=== PATIENT | male | born 1990 | race Caucasian/White ===

== ENCOUNTER → 2020-07-13 09:50 | Outpatient (CLI) | payer BC, SELFPAY ==
--- NOTE | 2020-07-13 09:56 | US_ITS ---
PROCEDURE: US TESTICULAR CLINICAL INDICATION: LT TESTICULAR PAIN COMPARISON: No exams were available for comparison FINDINGS: Right testicle is 3 x 3 x 2 cm. Left testicle is 3 x 3.5 x 2.6 cm. There is homogeneous echogenicity. No mass or abnormal fluid collection is evident. No hydrocele. No varicocele or spermatocele. There is bilateral testicular blood flow IMPRESSION: Negative testicular ultrasound Dictated by: Lamin Shah MD 07/13/2020 11:28 Lamin Shah MD in [place] 07/13/2020 11:28
== END ==
PROVIDERS: PCP Family Medicine; Visit Provider Physician Assistant
DX: N50.812 Left testicular pain (principal)
CPT/HCPCS: 76870

== ENCOUNTER → 2021-08-30 16:20 | Outpatient (CLI) | payer BC, SELFPAY | PROVIDERS: PCP Family Medicine; Visit Provider Nurse Practitioner | DX: Z20.822 Contact with and (suspected) exposure to COVID-19 (principal) ==

== ENCOUNTER → 2021-11-19 18:03 | Outpatient (CLI) | payer BC, SELFPAY | PROVIDERS: PCP Family Medicine; Visit Provider Nurse Practitioner | DX: Z20.822 Contact with and (suspected) exposure to COVID-19 (principal) | CPT/HCPCS: C9803; U0003; U0005 ==

== ENCOUNTER → 2021-12-09 10:33 | Outpatient (CLI) | payer BC, SELFPAY | PROVIDERS: PCP Psychiatry & Neurology Sleep Medicine; Visit Provider Nurse Practitioner | DX: U07.1 COVID-19 (principal) | CPT/HCPCS: C9803; U0003; U0005 ==

== ENCOUNTER → 2021-12-16 11:21 | Outpatient (CLI) | payer BC, SELFPAY | PROVIDERS: Visit Provider Nurse Practitioner | DX: U07.1 COVID-19 (principal) | CPT/HCPCS: C9803; U0003; U0005 ==

== ENCOUNTER → 2022-07-23 10:06 | Outpatient (CLI) | payer BC, SELFPAY ==
--- NOTE | 2022-07-23 10:12 | XR_ITS ---
FINAL REPORT TECHNIQUE: Chest PA & Lateral CLINICAL HISTORY: COUGH FINDINGS: 2 views of the chest were performed. The heart size is normal. There is a calcified right hilar lymph node. There is a calcified granuloma in the right mid lung. The left lung is clear. There are no pleural effusions. There is no pneumothorax. The bony thorax appears intact. IMPRESSION: No acute cardiopulmonary process. Calcified residual of old granulomatous disease. Reviewed, Interpreted and Dictated by Ray Lovelace MD Transcribed by Isi Maldonado Authenticated and [facility][1]
--- NOTE | 2022-07-23 10:12 | XR_ITS ---
FINAL REPORT CLINICAL HISTORY: RT FOOT PAIN FINDINGS: RIGHT FOOT Three views of the right foot demonstrate no acute fracture or dislocation. There is an old healed fracture at the base of the 5th metatarsal. The visualized joint spaces are normally aligned. The soft tissues are unremarkable. IMPRESSION: No acute bony abnormality. Reviewed, Interpreted and Dictated by Ray Lovelace MD Transcribed by Isi Maldonado Authenticated and [facility]
== END ==
PROVIDERS: PCP Physician Assistant; Visit Provider Physician Assistant
DX: M79.671 Pain in right foot; R05.8 Other specified cough
CPT/HCPCS: 71046; 73630

== ENCOUNTER → 2022-07-30 11:22 | Outpatient (CLI) | payer BC, SELFPAY ==
--- NOTE | 2022-07-30 11:33 | ECG_ITS ---
APPROVED REPORT Exam: Resting ECG HR:69 bpm ECG Measurements Heart Rate 69 AXES SD 153 P 55 QRSd 86 QRS 27 QT 380 T 31 QTc 399 Conclusion SINUS RHYTHM WITH SINUS ARRHYTHMIA NONSPECIFIC ST ELEVATION [0.05+ mV ST ELEVATION] BORDERLINE ECG UNCONFIRMED REPORT Electronically signed by : Todd Gaffney MD 07/31/2022 11:25:09
== END ==
LOC: RT 11:23
PROVIDERS: PCP Family Medicine; Visit Provider Nurse Practitioner Family
DX: R55 Syncope and collapse (principal)
CPT/HCPCS: 93005

== ENCOUNTER 2022-08-15 18:28 | Emergency (ER) | payer BC, SELFPAY ==
--- NOTE | 2022-08-15 18:31 | XR_ITS ---
PROCEDURE INFORMATION: Exam: XR Left Ribs with PA Chest Exam date and time: 08/15/2022 6:33 PM Age: 32 years old Clinical indication: Chest wall pain; Left; Additional info: Pain after coughing spell TECHNIQUE: Imaging protocol: Radiologic exam of the Left ribs with PA chest. Views: 3 views COMPARISON: CR XR CHEST 2V 07/23/2022 10:15 AM FINDINGS: Lungs: A chronic right pulmonary nodule of 8 mm, calcified granuloma previously reported no acute pulmonary findings. No consolidation. No significant pulmonary vascular congestion. Normal lung volumes. Chronic calcified right hilar lymph nodes. Pleural spaces: Unremarkable. No significant pleural effusion. No pneumothorax. Heart/Mediastinum: The cardiac silhouette is normal. Bones/joints: No acute or displaced rib fracture detected. IMPRESSION: 1. No acute rib fracture detected. 2. No acute cardiopulmonary findings. No consolidation, pleural effusion or pneumothorax. 3. Chronic calcified right pulmonary granuloma, and calcified right hilar lymph nodes.
[2022-08-15 19:09] VITALS: BP 139/87; PULSE 80; RESP 19; TEMP 36.9; O2SAT 98; BMI 34.9
--- NOTE | 2022-08-15 19:22 | EXP.UTC ---
Discharge Plan Disposition Patient Disposition: Home, Self-Care Condition: Good Prescriptions Prescriptions: No Action amoxicillin 500 mg capsule 500 mg PO Q12H 10 Days Qty: 20 0RF Referrals Follow up/Referrals: Ana Lilia Hinkle APRN [Primary Care Provider] - See instructions Activity Restrictions/Add. Instructions Additional Instructions/Restrictions: Cool compresses may help with pain Over the counter lidocaine patches may help with pain and discomfort follow directions on package *Ibuprofen 600-800mg every 6-8 hours as needed for pain an inflammation. If need something more can take Tylenol in between doses of Ibuprofen to help Immediately follow up with your family doctor for new or worsening of symptoms, or no noticeable improvement over the next 3-5 days Clinical Impressions Clinical Impression: Pain in rib Stand Alone Forms Stand Alone Forms: Work/School Release Instructions Patient Instructions: DI for Chronic Pain -- Adult, DI for Rib Contusion Discharge ED Provider: Rafaela Miramontes [facility] [place] General Stated complaint: left rib pain, no accident Mode of Arrival: Ambulatory Source of Information: Patient Limitations: No Limitations Time Seen by Provider: 08/15/22 19:22 Description of Symptoms (Recalled from Triage Doc. by RN): C/O rib pain after coughing HEENT Symptoms (Recalled from RN notes): No Resp Symptoms (Recalled from RN notes): No Skin Symptoms (Recalled from RN notes): No MS Symptoms (Recalled from RN notes): Yes (Rib pain) Functional Status (Recalled from RN notes): n/a History of Present Illness Provider Complaint: Patient states that at work earlier today he had a coughing episode and thinks he may have broke a rib States that he has been having pain in his left lower ribs since coughing earlier and feeling pop States that he had to leave work and come in and get checked State that he has pain at times when he moves or takes a deep breath Related Data Previous Rx's Medication Instructions Recorded amoxicillin 500 mg capsule 500 mg PO Q12H otitis media 10 11/28/19 days #20 caps Allergies Allergy/AdvReac Type Severity Reaction Status Date / Time No Known Allergies Allergy Verified 11/28/19 15:32 Worker's Comp Is this a Worker's Comp case?: No PFSH PFSH Social History Smoking Status: Current every day smoker tobacco type: e-cigarettes alcohol intake: never current occupational status: employed Travel in the last 8 weeks: None household members: family housing: house ROS Obtained: Yes All systems reviewed & no additional complaints except as documented and Yes Systems reviewed as appropriate & no additional complaints except as documented Constitutional Constitutional: Reports system reviewed and no additional complaints, except as documented and Reports as per HPI ENT Ears, Nose, Mouth, and Throat: Reports system reviewed and no additional complaints, except as documented and Reports as per HPI Cardiovascular Cardiovascular: Reports system reviewed and no additional complaints, except as documented, Reports as per HPI and Denies chest pain Respiratory Respiratory: Reports system reviewed and no additional complaints, except as documented, Reports as per HPI and Reports pain with cough (pain in left ribs felt pop earlier with coughing in left lower rib) Physical Exam General General appearance: alert and in no apparent distress Chest Chest inspection: Present normal inspection, symmetric chest wall rise and tenderness Expanded Chest Exam Male Torso: 1. reports tenderness with touch and movement reports felt a pop while coughing earlier no bruising no swelling noted Respiratory Respiratory exam: Present normal lung sounds bilaterally; Absent respiratory distress or wheezes Cardiovascular Cardiovascular exam: Present regular rate, normal rhythm and normal heart sounds Neurological Exam Neurological exam: Present alert, oriented X3 and normal gait
[2022-08-15 19:37] VITALS: BP 139/87; PULSE 80; RESP 19; TEMP 36.9; O2SAT 98
== END 2022-08-15 19:38 | disposition home or self-care (01) ==
PROVIDERS: Emergency Provider Nurse Practitioner; PCP Nurse Practitioner Family
DX: R07.81 Pleurodynia (principal); F17.290 Nicotine dependence, other tobacco product, uncomplicated
CPT/HCPCS: 71101; 99212; G0463

== ENCOUNTER → 2022-08-27 08:56 | Outpatient (CLI) | payer BC, SELFPAY | PROVIDERS: PCP Family Medicine; Visit Provider Urology | DX: Z01.812 Encounter for preprocedural laboratory examination (principal); Z20.822 Contact with and (suspected) exposure to COVID-19; Z30.2 Encounter for sterilization | CPT/HCPCS: C9803; U0003; U0005 ==

== ENCOUNTER 2022-08-29 06:46 | Day surgery (SDC) | payer BC, SELFPAY ==
[2022-08-29 07:20] VITALS: BP 146/91; PULSE 90; RESP 20; TEMP 36.6; O2SAT 94; BMI 37.2
[2022-08-29 09:12] VITALS: BP 139/73; PULSE 78; RESP 16; TEMP 36.3; O2SAT 100
--- NOTE | 2022-08-29 09:20 | EXP.OP.NOTE ---
Date of procedure: 08/29/22 Pre-op Diagnosis:: Sterilization Post-op Diagnosis:: Sterilization Procedure performed:: Vasectomy Surgeon:: Ward Green MD Anesthesia: local Estimated blood loss (mL): 2 Clinical Note:: 32-year-old white male presents for vasectomy today. Preoperative consultation has been performed in the office within the month. Operative findings:: Scrotal examination revealed normal testicular examination. Procedure went well no complications incurred. Operative note:: Patient taken to the operating suite after informed consent was obtained. On the stretcher he was prepped and draped in the standard surgical fashion. Testicular examination was within normal limits. Left vas was grasped and brought up to the midline raphae. Local anesthetic was placed under the skin and around the vas deferens. An incision was then made in the skin and a tenaculum was placed through the incision and the left vas was grasped and brought out through the incision. The vasal sheath was incised and the vas proper was dissected free from the adventitial tissue. 1 clip was placed distally and 2 clips were placed proximally. A 1 cm segment was excised and the vasa lumens were cauterized and the surrounding tissue was cauterized at bleeding points. The left vas was dropped back into the left hemiscrotum and the right vas was brought up through the incision and the identical procedure was performed. The right vas was dropped back into the hemiscrotum and a 3-0 chromic in a horizontal mattress fashion was placed in the incision. Compression dressing applied. Patient tolerated procedure well no complications. Condition: stable Disposition: same day Specimens:: Vas segments were obtained but not sent for pathology. Complications:: None
[2022-08-29 09:28] VITALS: BP 139/73; PULSE 78; RESP 16; TEMP 36.3; O2SAT 100
== END 2022-08-29 09:28 | disposition home or self-care (01) ==
PROVIDERS: PCP Family Medicine; Visit Provider Urology
PROC: (CPT 55250; principal; 2022-08-29 08:00)
DX: Z30.2 Encounter for sterilization (principal); F17.200 Nicotine dependence, unspecified, uncomplicated
CPT/HCPCS: 55250

== ENCOUNTER → 2022-11-07 08:28 | Outpatient (CLI) | payer BC, SELFPAY | PROVIDERS: PCP Family Medicine; Visit Provider Urology | DX: Z30.8 Encounter for other contraceptive management (principal); Z31.41 Encounter for fertility testing ==

== ENCOUNTER → 2022-11-13 09:15 | Outpatient (CLI) | payer BC, SELFPAY ==
[2022-11-13 10:16] LABS: PH,Semen 8.5 (7.3-8.3); Semen Viscosity Normal (Normal); Sperm Count 0 mil/mm3 (20-160); Sperm Motility 0 % (50-90); Volume,Semen 1.5 ml (2.0-5.0); WBCs,Semen Trace
[2022-11-13 10:17] LABS: Semen Analysis Comment/Source NO SPERM OBSERVED
== END ==
PROVIDERS: PCP Family Medicine; Visit Provider Urology
DX: Z98.52 Vasectomy status (principal)
CPT/HCPCS: 89320

== ENCOUNTER → 2022-12-22 09:34 | Outpatient (CLI) | payer BC, SELFPAY ==
[2022-12-22 10:29] LABS: Semen Viscosity Normal (Normal); Volume,Semen 1.5 ml (2.0-5.0); WBCs,Semen Small
[2022-12-22 10:30] LABS: PH,Semen 8.5 (7.3-8.3); Semen Analysis Comment/Source NO SPERM SEEN
[2022-12-22 10:31] LABS: Sperm Count 0 mil/mm3 (20-160)
== END ==
PROVIDERS: PCP Family Medicine; Visit Provider Urology
DX: Z98.52 Vasectomy status (principal)
CPT/HCPCS: 89320

== ENCOUNTER 2023-08-24 09:03 | Emergency (ER) | payer BC, SELFPAY ==
--- NOTE | 2023-08-24 09:19 | XR_ITS ---
FINAL REPORT CLINICAL HISTORY: PAIN, NO INJURY COMPARISON: None FINDINGS: AP, oblique, and lateral views of the right wrist were obtained. There is no prior exam for comparison. There is no acute fracture or dislocation. The joint spaces are preserved. The soft tissues are normal. IMPRESSION: No acute osseous abnormality of the right wrist. If pain persists, MR is recommended. Reviewed, Interpreted and Dictated by Leann Martinez MD Transcribed by Dorie Boston Authenticated and [facility]
[2023-08-24 09:25] VITALS: BP 143/90; PULSE 74; RESP 18; TEMP 36.6; O2SAT 98; BMI 37.8
--- NOTE | 2023-08-24 09:42 | EXP.UTC ---
Discharge Plan Disposition Patient Disposition: Home, Self-Care Condition: Good Prescriptions Prescriptions: New methylprednisolone [Medrol (Sagar)] 4 mg tablets,dose pack See Rx Instructions .Route .COMPLEX 6 Days Qty: 21 0RF Rx Instructions: taper pack; Referrals Follow up/Referrals: Levar Roland MD [Primary Care Provider] - See instructions Activity Restrictions/Add. Instructions Additional Instructions/Restrictions: *RICE, Rest the extremity, Ice 15-20 minutes 3-4 times daily, Compress- wear the charmaine wrap as discussed as much as possible to help reduce swelling and pain, Elevate the extremity when at rest *Velcro Wrist splint is for support and help control swelling, use it except in the shower. Be sure that is not to tight but not to loose either *Elevate when resting? *Ibuprofen 600-800mg every 6-8 hours as needed for pain an inflammation. If need something more can take Tylenol in between doses of Ibuprofen to help Immediately follow up with your family doctor for new or worsening of symptoms, or no noticeable improvement over the next 3-5 days Follow up with your Family Doctor if no improvement or any worsening of symptoms Clinical Impressions Clinical Impression: Acute wrist pain Qualifiers: Laterality: right Qualified Code(s): M25.531 - Pain in right wrist Instructions Patient Instructions: How To Perform RICE (Rest, Ice, Compress, Elevate) Discharge ED Provider: Rafaela Miramontes [facility] General Stated complaint: pain in Rt wrist, no accident Mode of Arrival: Ambulatory Source of Information: Patient Limitations: No Limitations Time Seen by Provider: 08/24/23 09:42 Description of Symptoms (Recalled from Triage Doc. by RN): PATIENT C/O RIGHT WRIST PAIN X 1 WEEK, NO KNOWN INJURY HEENT Symptoms (Recalled from RN notes): No Resp Symptoms (Recalled from RN notes): No Skin Symptoms (Recalled from RN notes): No MS Symptoms (Recalled from RN notes): Yes Functional Status (Recalled from RN notes): WNL History of Present Illness Provider Complaint: Patient state that he has been doing some remodeling at home not sure if he may have pulled something in his wrist or not but he has been having pain in his right wrist for about a week that is worse with movement Denies known injury no swelling or bruising Related Data Previous Rx's Medication Instructions Recorded methylprednisolone 4 mg tablets in See Rx Instructions .Route 08/24/23 a dose pack (Medrol (Sagar)) .COMPLEX 6 days #21 tabs Allergies Allergy/AdvReac Type Severity Reaction Status Date / Time No Known Allergies Allergy Verified 08/29/22 07:21 Worker's Comp Is this a Worker's Comp case?: No [facility] Disclaimer: The information contained in this section may have been updated after the patient was seen, as this information can be updated by other users. Surgical History (Updated 08/24/23 @ 09:38 by Carole Garnica RN) H/O vasectomy Family History (Updated 08/29/22 @ 07:25 by Bryanna Bowles RN) Other Cancer Family history of diabetes mellitus type II Social History (Updated 08/29/22 @ 07:28 by Bryanna Bowles RN) Smoking Status: Current every day smoker tobacco type: e-cigarettes years smoked: 10 second hand exposure: No alcohol intake: never current occupational status: employed Travel in the last 8 weeks: None household members: family housing: house marital status: caffeine: Yes do you feel safe at home: Yes victim of physical abuse: No victim of emotional abuse: No victim of sexual abuse: No would you like helpful sources: No ROS Obtained: Yes All systems reviewed & no additional complaints except as documented and Yes Systems reviewed as appropriate & no additional complaints except as documented Constitutional Constitutional: Reports system reviewed and no additional complaints, except as documented and Reports as per HPI ENT Ears, Nose, Mouth
[2023-08-24 10:10] VITALS: BP 143/90; PULSE 74; RESP 18; TEMP 36.6; O2SAT 98
== END 2023-08-24 10:46 | disposition home or self-care (01) ==
PROVIDERS: Emergency Provider Nurse Practitioner; PCP Family Medicine
DX: M25.531 Pain in right wrist (principal); F17.290 Nicotine dependence, other tobacco product, uncomplicated
CPT/HCPCS: 73110; 99212; 99214; G0463

== ENCOUNTER 2024-04-29 18:19 | Emergency (ER) | payer BC, SELFPAY ==
[2024-04-29 18:47] VITALS: BP 124/87; PULSE 82; RESP 18; TEMP 36.7; O2SAT 98; BMI 35.9
--- NOTE | 2024-04-29 18:58 | ED_ITS ---
Discharge Plan Disposition Patient Disposition: Home, Self-Care Condition: Good Prescriptions Prescriptions: New triamcinolone acetonide 0.1 % cream 1 applic topical BID PRN (Reason: itching) Qty: 30 0RF diphenhydramine HCl 25 mg capsule 25 mg PO Q6HP PRN (Reason: Itching) Qty: 30 0RF No Action methylprednisolone [Medrol (Sagar)] 4 mg tablets,dose pack See Rx Instructions .Route .COMPLEX 6 Days Qty: 21 0RF Rx Instructions: taper pack; Referrals Follow up/Referrals: Levar Roland MD [Primary Care Provider] - See instructions Activity Restrictions/Add. Instructions Additional Instructions/Restrictions: Try to identify and avoid contact with the offending substance. Don't start the oral steroids until tomorrow. The diphenhydramine (benedryl) will make you drowsy, so don't drive or operate heavy machinery after taking it. Don't put the topical steroids (triamcinolone) on your face or your groin. Follow up with your regular doctor. GO TO THE ER FOR ANY WORSENING SYMPTOMS OR CONCERNS Clinical Impressions Clinical Impression: Allergic reaction Instructions Patient Instructions: DI for General Allergic Reactions, Triamcinolone Topical, Diphenhydramine, Dexamethasone Discharge ED Provider: Pedro Craig [facility] [place] General Stated complaint: Allergic reaction-red rash on arms,neck face Mode of Arrival: Ambulatory Source of Information: Patient Limitations: No Limitations Time Seen by Provider: 04/29/24 18:58 Description of Symptoms (Recalled from Triage Doc. by RN): Patient complaint of a possible allergic reaction. Rash to arms and face. HEENT Symptoms (Recalled from RN notes): No Resp Symptoms (Recalled from RN notes): No Skin Symptoms (Recalled from RN notes): Yes MS Symptoms (Recalled from RN notes): No Functional Status (Recalled from RN notes): wnl History of Present Illness Provider Complaint: He states that for the past 2 days he has had an itchy rash on his face, arms, upper back and neck. Related Data Previous Rx's Medication Instructions Recorded methylprednisolone 4 mg tablets in See Rx Instructions .Route 08/24/23 a dose pack (Medrol (Sagar)) .COMPLEX 6 days #21 tabs diphenhydramine HCl 25 mg capsule 25 mg PO Q6HP PRN Itching #30 caps 04/29/24 triamcinolone acetonide 0.1 % 1 applic topical BID PRN itching 04/29/24 topical cream #30 grams Allergies Allergy/AdvReac Type Severity Reaction Status Date / Time No Known Allergies Allergy Verified 08/29/22 07:21 Worker's Comp Is this a Worker's Comp case?: No [facility] Disclaimer: The information contained in this section may have been updated after the patient was seen, as this information can be updated by other users. Surgical History (Updated 08/24/23 @ 09:38 by Carole Garnica RN) H/O vasectomy Family History (Updated 08/29/22 @ 07:25 by Bryanna Bowles RN) Other Cancer Family history of diabetes mellitus type II Social History (Updated 08/29/22 @ 07:28 by Bryanna Bowles RN) Smoking Status: Current every day smoker tobacco type: e-cigarettes years smoked: 10 second hand exposure: No alcohol intake: never current occupational status: employed Travel in the last 8 weeks: None household members: family housing: house marital status: caffeine: Yes do you feel safe at home: Yes victim of physical abuse: No victim of emotional abuse: No victim of sexual abuse: No would you like helpful sources: No ROS Obtained: Yes All systems reviewed & no additional complaints except as documented Constitutional Constitutional: Denies chills and Denies fever(s) Eyes Eyes: Denies eye discharge ENT Ears, Nose, Mouth, and Throat: Denies dizziness, Denies otalgia and Denies sore throat Cardiovascular Cardiovascular: Denies chest pain Respiratory Respiratory: Denies shortness of breath, Denies chest congestion, Denies cough, Denies stridor and Denies wheezing Gastrointestinal Gastrointestingal: Denies nausea or vomiting Musculoskeletal Musculoskeletal: Reports system reviewed and no additional complaints, except as documented and Denies arthralgias Integumentary/Breasts Skin/Breast: Reports as per HPI and Reports rash Neurologic Neurologic: Denies dizziness and Denies paresthesias Allergic/Immunologic Allergic/Immunologic: Denies wheezing Physical Exam General General appearance: alert and in no apparent distress Head Head exam: atraumatic, normocephalic and normal inspection Eye Eye exam: Present normal appearance, PERRL and EOMI ENT ENT exam: Present normal exam, normal oropharynx, mucous membranes moist, TM's normal bilaterally and normal external ear exam Neck Neck exam: Present normal inspection, full ROM and trachea midline; Absent meningismus or lymphadenopathy Chest Chest inspection: Present normal inspection and symmetric chest wall rise; Absent tenderness Respiratory Respiratory exam: Present normal lung sounds bilaterally; Absent respiratory distress Cardiovascular Cardiovascular exam: Present regular rate and normal rhythm; Absent JVD Abdominal Exam Abdominal exam: Present soft and normal bowel sounds; Absent distention, tenderness or guarding Extremities Exam Extremities exam: Present normal inspection, full ROM and normal capillary refill; Absent calf tenderness Back Exam Back exam: Present normal inspection; Absent tenderness Neurological Exam Neurological exam: Present alert and oriented X3 Psychiatric Psychiatric exam: Present normal affect and normal mood Skin Skin exam: Present rash Lymphatic Lymphatic Findings: no adenopathy Medical Decision Making Medical Records Medical records reviewed: No I reviewed the patient's medical records. Cal Inquiry Pt receiving controlled substance: No Vital Signs: 04/29/24 18:47 Temperature 98.0 F Temperature Source Oral Pulse Rate [Radial] 82 Respiratory Rate 18 Blood Pressure [Right Arm] 124/87 Blood Pressure Mean [Right Arm] 99 Blood Pressure Source [Right Arm] Automatic Cuff Blood Pressure Position [Right Arm] Sitting 02 Sat by Pulse Oximetry 98 Oxygen Delivery Method Room Air
[2024-04-29] MEDS: DEXAMETHASONE 4MG/ML 1ML VIAL 10 MG IM (19:18)
[2024-04-29 19:29] VITALS: BP 124/87; PULSE 82; RESP 18; TEMP 36.7; O2SAT 98
== END 2024-04-29 19:30 | disposition home or self-care (01) ==
PROVIDERS: Emergency Provider Nurse Practitioner Family; PCP Family Medicine
DX: T78.40XA Allergy, unspecified, initial encounter (principal); R21 Rash and other nonspecific skin eruption
CPT/HCPCS: 96372; 99212; 99214; G0463

== ENCOUNTER 2024-07-17 07:51 | Emergency (ER) | payer BC, SELFPAY ==
[2024-07-17] VITALS (8 sets, daily range): BP systolic 115–155; BP diastolic 56–88; PULSE 59–91; RESP 16; TEMP 36.6; O2SAT 94–97; BMI 36.2
[2024-07-17 08:07] LABS: Microscopic, Urine URINE MICROSCOPIC (MICROSCOPIC)
[2024-07-17 08:09] LABS: Appearance,Urine CLEAR (Clear); Bilirubin,Urine Negative (Negative); Blood, Urine 3+ (Negative); Color,Urine YELLOW (Yellow); Glucose,Urine (UA) Negative (Negative); Ketones,Urine Negative (Negative); Leukocyte Esterase,Urine Negative (Negative); Nitrate,Urine Negative (Negative); Protein,Urine Negative (Negative); Specific Gravity, Urine >= 1.030 (1.005-1.030); Urobilinogen,Urine 0.2 EU/dl (0.2)
--- NOTE | 2024-07-17 08:11 | CT_ITS ---
PROCEDURE INFORMATION: Exam: CT Lumbar Spine Without Contrast Exam date and time: 07/17/2024 8:29 AM Age: 34 years old Clinical indication: Low back pain; Additional info: L low back/flank pain TECHNIQUE: Imaging protocol: Computed tomography of the lumbar spine without contrast. Radiation optimization: All CT scans at this facility use at least one of these dose optimization techniques: automated exposure control; mA and/or kV adjustment per patient size (includes targeted exams where dose is matched to clinical indication); or iterative reconstruction. COMPARISON: CT THORACIC SPINE WO CON 07/17/2024 8:26 AM FINDINGS: Bones/joints: No acute fracture. Normal alignment. Disc spaces: There is loss of disc space height at L5-S1, related to degenerative disc disease. T12-L1: No significant disc bulge or herniation. No spinal canal stenosis. No significant neural foraminal narrowing. L1-L2: No significant disc bulge or herniation. No spinal canal stenosis. No significant neural foraminal narrowing. L2-L3: There is a small bulge which flattens the sac. No spinal canal stenosis. No significant neural foraminal narrowing. L3-L4: There is a small bulge which flattens the sac. No spinal canal stenosis. No significant neural foraminal narrowing. L4-L5: No significant disc bulge or herniation. There are mild facet joint degenerative changes. No spinal canal stenosis. No significant neural foraminal narrowing. L5-S1: There is a diffuse protrusion more prominent on the left than right which extends to the sac and S1 roots (series 3, image 80). No spinal canal stenosis. No significant neural foraminal narrowing. Soft tissues: Left distal ureteral calculus. IMPRESSION: 1. There are degenerative changes most focal at L5-S1 where there is a diffuse protrusion which extends of the sac and S1 roots. 2. If radicular symptoms are present and/or persists a follow-up MRI may be indicated. 3. Left distal ureteral calculus.
--- NOTE | 2024-07-17 08:11 | CT_ITS ---
PROCEDURE INFORMATION: Exam: CT Abdomen And Pelvis Without Contrast Exam date and time: 07/17/2024 8:19 AM Age: 34 years old Clinical indication: Abdominal pain and other: Lower back; Flank; Left; Additional info: L low back/flank pain TECHNIQUE: Imaging protocol: Computed tomography of the abdomen and pelvis without contrast. Radiation optimization: All CT scans at this facility use at least one of these dose optimization techniques: automated exposure control; mA and/or kV adjustment per patient size (includes targeted exams where dose is matched to clinical indication); or iterative reconstruction. COMPARISON: US TESTICULAR 07/13/2020 10:09 AM FINDINGS: Liver: There is a punctate posterior hepatic calcification. There is fatty infiltration of the liver with some sparing surrounding the gallbladder. Gallbladder and biliary ducts: No calcified stones. No ductal dilation. Pancreas: Normal. No ductal dilation. Spleen: There are multiple splenic calcifications. Adrenal glands: Normal. No mass. Kidneys and ureters: There is mild to moderate left hydronephrosis and hydroureter. There is a 6 mm distal left ureteral calculus at or just inferior to the pelvic vessels (series 3, image 91). This is not identified on the gantry rigger radiograph. There is no renal calculus. Stomach and bowel: No obstruction. Appendix: No evidence of appendicitis. Intraperitoneal space: No free air. No significant fluid collection. Vasculature: No abdominal aortic aneurysm. Lymph nodes: No enlarged lymph nodes. Urinary bladder: Unremarkable as visualized. Reproductive: Unremarkable as visualized. Bones/joints: There are some degenerative changes of the lumbar spine better assessed on dedicated imaging. Soft tissues: There is a small fat containing periumbilical hernia. IMPRESSION: There is moderate obstruction of the left kidney from a 6 mm left ureteral calculus at or just inferior to the pelvic vessels.
--- NOTE | 2024-07-17 08:12 | HMH.EDGENADL ---
Discharge Plan Disposition Patient Disposition: Home, Self-Care Condition: Good Prescriptions Prescriptions: New oxycodone 5 mg tablet 5 mg PO Q8H PRN (Reason: pain) Qty: 12 0RF ketorolac 10 mg tablet 10 mg PO Q8H PRN (Reason: pain) Qty: 12 0RF ondansetron 4 mg tablet,disintegrating 4 mg PO Q8H PRN (Reason: nausea and vomiting) 4 Days Qty: 12 0RF tamsulosin [Flomax] 0.4 mg capsule 0.4 mg PO HS Qty: 14 0RF No Action methylprednisolone [Medrol (Sagar)] 4 mg tablets,dose pack See Rx Instructions .Route .COMPLEX 6 Days Qty: 21 0RF Rx Instructions: taper pack; triamcinolone acetonide 0.1 % cream 1 applic topical BID PRN (Reason: itching) Qty: 30 0RF diphenhydramine HCl 25 mg capsule 25 mg PO Q6HP PRN (Reason: Itching) Qty: 30 0RF Referrals Follow up/Referrals: Levar Roland MD [Primary Care Provider] - See instructions Activity Restrictions/Add. Instructions Additional Instructions/Restrictions: You were evaluated in the emergency department today. You were diagnosed with a kidney stone. You were also incidentally found to have disc abnormalities between T6 and T7 of your spine as well as L5 and S1. He also incidentally found to have a right lung granuloma with some adjacent lymph nodes. Please follow-up closely with your primary care provider for evaluation of these. For your kidney stone, I recommend close follow-up with urology. We often send people to Dr. Green. Please see below information. I am also prescribing you Flomax to help increase urine flow, Zofran to take as needed for nausea and vomiting, oxycodone to take as needed for severe pain, and Toradol to take as well as needed for pain. Do not take ibuprofen or other NSAIDs with Toradol. You may take Tylenol in addition to all these medications every 4-6 hours as needed for pain. Return to the emergency department right away for new or worsening symptoms, such as significant worsening of pain, intractable nausea and vomiting, or fever greater than 100.[address] Ward Green - ? 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 by RN): pt presents to ED with c/o left lower back pain. pt reports he has been seeing a chiropractor for the past week and that had been helping. pt reports seeing the chiropractor yesterday, but this am pt awoke with worsening pain. no urinary symptoms. History of Present Illness HPI narrative: This patient is a 34-year-old male who reports a history of chronic back pain as well as prior kidney stone presenting to the emergency department for evaluation with concern for left-sided low back pain that radiates around his ribs. Patient states that he has a history of low back pain in the past for which he sees a chiropractor. He notes that he saw the chiropractor yesterday and everything seemed to be fine, but he woke up this morning in severe pain. He also notes nausea and vomiting secondary to the pain. No fevers, chills, chest pain, shortness of breath, cough, congestion, changes in bowel movements, changes in urine, or other concerns. He does note that it seems to get worse with movement but he is not able to find a position of comfort. No numbness, tingling, or saddle anesthesia. Related Data Previous Rx's ?Medication ?Instructions ?Recorded methylprednisolone 4 mg tablets in See Rx Instructions .Route 08/24/23 a dose pack (Medrol (Sagar)) .COMPLEX 6 days #21 tabs diphenhydramine HCl 25 mg capsule 25 mg PO Q6HP PRN Itching #30 caps 04/29/24 triamcinolone acetonide 0.1 % 1 applic topical BID PRN itching 04/29/24 topical cream #30 grams ketorolac 10 mg tablet 10 mg PO Q8H PRN pain #12 tabs 07/17/24 ondansetron 4 mg disintegrating 4 mg PO Q8H PRN nausea and 07/17/24 tablet vomiting 4 days #12 tabs oxycodone 5 mg tablet 5 mg PO Q8H PRN pain #12 tabs 07/17/24 tamsulosin 0.4 mg capsule (Flomax) 0.4 mg PO HS #14 caps 07/17/24 Allergies Allergy/AdvReac Type Severity Reaction Status Date / Time No Known Allergies Allergy Verified 07/17/24 08:03 [facility] Disclaimer: The information contained in this section may have been updated after the patient was seen, as this information can be updated by other users. Surgical History H/O vasectomy Family History Other Cancer Family history of diabetes mellitus type II Social History Smoking Status: Never smoker years smoked: 10 second hand exposure: No alcohol intake: never current occupational status: employed Travel in the last 8 weeks: None household members: family housing: house marital status: caffeine: Yes do you feel safe at home: Yes victim of physical abuse: No victim of emotional abuse: No victim of sexual abuse: No would you like helpful sources: No ROS Obtained: Yes All systems reviewed & no additional complaints except as documented Physical Exam General General appearance: alert Comment: Uncomfortable appearing Head Head exam: atraumatic and normocephalic Eye Eye exam: Present normal appearance, PERRL and EOMI ENT ENT exam: Present normal exam, normal oropharynx, mucous membranes moist and normal external ear exam Neck Neck exam: Present normal inspection, full ROM and trachea midline; Absent tenderness Chest Chest inspection: Present normal inspection and symmetric chest wall rise; Absent tenderness Respiratory Respiratory exam: Present normal lung sounds bilaterally; Absent respiratory distress, wheezes, stridor or accessory muscle use Cardiovascular Cardiovascular exam: Present regular rate and normal rhythm Abdominal Exam Abdominal exam: Present soft; Absent distention, tenderness or guarding Extremities Exam Extremities exam: Present normal inspection, full ROM and normal capillary refill; Absent tenderness or edema Back Exam Back exam: Present tenderness, muscle spasm, paraspinal tenderness and vertebral tenderness; Absent full ROM (Limited range of motion secondary to pain) Back 1 view image: 1. Tenderness with palpation Neurological Exam Neurological exam: Present alert, oriented X3, CN II-XII intact and normal gait; Absent motor sensory deficit Psychiatric Psychiatric exam: Present normal affect and normal mood Skin Skin exam: Present warm and dry Medical Decision Making Medical Records Medical records reviewed: Yes I reviewed the patient's medical records. Cal Inquiry Pt receiving controlled substance: No Vital Signs: 07/17/24 07:52 07/17/24 08:01 07/17/24 08:16 Temperature 97.9 F Temperature Source Oral Pulse Rate 91 H 82 Pulse Rate [Left Radial] 88 Respiratory Rate 16 Blood Pressure 154/88 H 155/80 H Blood Pressure [Right Arm] 154/88 H Blood Pressure Mean [Right Arm] 110 02 Sat by Pulse Oximetry 97 97 97 Oxygen Delivery Method Room Air 07/17/24 08:46 07/17/24 09:01 07/17/24 09:16 Temperature Temperature Source Pulse Rate 79 68 61 Pulse Rate [Left Radial] Respiratory Rate Blood Pressure 139/75 145/56 H 123/72 Blood Pressure [Right Arm] Blood Pressure Mean [Right Arm] 02 Sat by Pulse Oximetry 95 96 95 Oxygen Delivery Method 07/17/24 09:30 Temperature Temperature Source Pulse Rate 77 Pulse Rate [Left Radial] Respiratory Rate Blood Pressure 125/67 Blood Pressure [Right Arm] Blood Pressure Mean [Right Arm] 02 Sat by Pulse Oximetry 94 L Oxygen Delivery Method Lab Data Lab results reviewed: Yes I reviewed the patient's lab results. Lab Results 07/17/24 08:03: Urine Color Yellow, Urine Appearance Clear, Urine pH 6.0, Ur Specific [place] >= 1.030, Urine Protein Negative, Urine Glucose (UA) Negative, Urine Ketones Negative, Urine Blood 3+, Urine Nitrate Negative, Urine Bilirubin Negative, Urine Urobilinogen 0.2, Ur Leukocyte Esterase Negative, Urine RBC 10-20, Urine WBC Occasional, Ur Squamous Epith Cells Occasional, Urine Bacteria Trace 07/17/24 08:10: WBC 8.8, RBC 5.23, Hgb 16.0, Hct 47.5, MCV 90.7, MCH 30.6, MCHC 33.8, RDW 12.9, Plt Count 304, MPV 7.6, Neut % (Auto) 69.7, Lymph % (Auto) 20.6, Tama % (Auto) 6.6, Eos % (Auto) 2.2, Baso % (Auto) 0.8, Neut # (Auto) 6.1, Lymph # (Auto) 1.8, Tama # (Auto) 0.6, Eos # (Auto) 0.2, Baso # (Auto) 0.1, Sodium 136, Potassium 4.6, Chloride 108 H, Carbon Dioxide 21 L, Anion Gap 11.6, BUN 17, Creatinine 0.90, Estimated Creat Clear 202, Estimated GFR 98, Est GFR ( Amer) 118, Glucose 107 H, Calcium 9.1, Total Bilirubin 1.0, AST 42, ALT 41, Alkaline Phosphatase 52, Total Protein 7.7, Albumin 4.5, Globulin 3.2, Albumin/Globulin Ratio 1.4, Lipase 103 07/17/24 08:10 07/17/24 08:10 Orders (Tests/Meds): ED MEDICATIONS Generic Name Dose Route Start Last Admin Trade Name Freq PRN Reason Stop Dose Admin Sodium Chloride 10 ml 07/17/24 08:11 Sodium Chloride 0.9% 10ml Flush Syringe IV 08/16/24 08:10 NEEDED PRN Maintain IV Site Discontinued Medications Generic Name Dose Route Start Last Admin Trade Name Freq PRN Reason Stop Dose Admin Acetaminophen 1,000 mg 07/17/24 08:12 07/17/24 08:23 Acetaminophen 500mg Tab PO 07/17/24 08:13 Not Given ONCE ONE Acetaminophen 1,000 mg 07/17/24 08:14 07/17/24 08:17 Acetaminophen 1,000mg/100ml Vial IV 07/17/24 08:15 1,000 mg ONCE ONE Administration Lactated Ringer's 1,000 mls @ 999 mls/hr 07/17/24 08:12 07/17/24 08:17 Lactated Ringer's 1000 Ml Bag IV 07/17/24 09:12 999 mls/hr .Q1H1M ONE Administration Ketorolac Tromethamine 15 mg 07/17/24 08:12 07/17/24 08:17 Ketorolac 30mg/Ml Vial IV 07/17/24 08:13 15 mg ONCE ONE Administration Morphine Sulfate 4 mg 07/17/24 08:12 07/17/24 08:17 Morphine 4mg/Ml Syringe IV 07/17/24 08:13 4 mg ONCE ONE Administration Ondansetron HCl 4 mg 07/17/24 08:12 07/17/24 08:23 Ondansetron 4mg/2ml Vial IV 07/17/24 08:13 Not Given ONCE ONE Ondansetron HCl 4 mg 07/17/24 08:12 07/17/24 08:14 Ondansetron 4mg Odt SL 07/17/24 08:13 4 mg ONCE ONE Administration Ondansetron HCl 4 mg 07/17/24 08:14 07/17/24 08:17 Ondansetron 4mg/2ml Vial IV 07/17/24 08:15 4 mg ONCE ONE Administration Oxycodone HCl 5 mg 07/17/24 09:14 07/17/24 09:18 Oxycodone 5mg Immediate Release Tablet PO 07/17/24 09:15 5 mg ONCE ONE Administration Tamsulosin HCl 0.4 mg 07/17/24 09:14 07/17/24 09:17 Tamsulosin 0.4mg Capsule PO 07/17/24 09:15 0.4 mg ONCE ONE Administration ORDERS Category Date Time Status CT abdomen pelvis wo con Stat Cat Scan 07/17/24 08:[address] lumbar spine wo con Stat Cat Scan 07/17/24 08:[address] thoracic spine wo con Stat Cat Scan 07/17/24 08:19 Completed Complete Blood Count Auto Diff Stat Lab 07/17/24 08:10 Completed Comprehensive Metabolic Panel Stat Lab 07/17/24 08:10 Completed Lipase Stat Lab 07/17/24 08:10 Completed UA [Urinalysis and Microscopic] Stat Lab 07/17/24 08:03 Completed Medical Decision Narrative: In summary, this patient is a 34-year-old male presenting to the Emergency Department for evaluation of left-sided low back/flank pain radiating around his ribs. He did have chiropractic manipulation yesterday and also has a history of kidney stone. Differential diagnoses considered include but are not limited to ureterolithiasis, pyelonephritis, colitis, musculoskeletal strain/sprain, fracture. Ruling out the most morbid conditions drove assessment. On exam, the patient is uncomfortable appearing and is actively retching. He has tenderness to palpation of his thoracolumbar spine and paraspinal muscles as well as left CVA tenderness. He has no alarm findings concerning for spinal cord compression/cauda equina syndrome and is neurologically intact on exam. Workup included CBC, CMP, lipase, urinalysis, CT thoracic and lumbar spine without contrast, and CT abdomen and pelvis without IV contrast. He was given a bolus of IV fluids as well as IV acetaminophen, Toradol, morphine, and Zofran for symptomatic improvement. I independently interpreted CT scan prior to the radiologist read and noted obstructive left ureterolithiasis measuring 6 mm. Please see their read for final interpretation. Labs were obtained that demonstrated no VILLA, no leukocytosis, and urine that demonstrates hematuria without concern for infection. On reassessment, patient had good improvement after administration of interventions above. To assess his ability to go home with oral pain medication, I did trial oral oxycodone here, which he tolerated well. His pain was very well-controlled. He was incidentally found to have some bulging disks on his spine imaging, which I notified him of. I also notified him of the right lung granuloma and adjacent lymph nodes, but he states he already knew about this. Ultimately given that his pain is under control, he does not appear to have signs of infection related to this kidney stone, and his kidney function is normal, I feel that he is appropriate for discharge home with close urology follow-up as an outpatient. I gave him instructions on how to schedule follow-up, prescriptions for Flomax, Toradol, Zofran, and oxycodone, and very strict return precautions. He was discharged after all questions were answered. Critical Care Critical Care Time Critical Care Time: No
[2024-07-17] MEDS: ONDANSETRON 4MG ODT 4 MG SL (08:14)
[2024-07-17] MEDS: KETOROLAC 30MG/ML VIAL 15 MG IV (08:17)
[2024-07-17] MEDS: ONDANSETRON 4MG/2ML VIAL 4 MG IV (08:17)
[2024-07-17] MEDS: ACETAMINOPHEN 1,000MG/100ML VIAL 1000 MG IV (08:17)
[2024-07-17] MEDS: LACTATED RINGERS 1000ML 1,000 ML 999 ML IV (08:17)
[2024-07-17] MEDS: MORPHINE 4MG/ML SYRINGE 4 MG IV (08:17)
[2024-07-17 08:18] LABS: Basophils # 0.1 K/mm3 (0-0.2); Basophils % 0.8 % (0.1-2.0); Eosinophils # 0.2 K/mm3 (0.0-0.4); Eosinophils % 2.2 % (0.1-12.0); Hematocrit 47.5 % (42.0-52.0); Lymphocytes # 1.8 K/mm3 (0.7-4.5); Lymphocytes % 20.6 % (10-50); Mean Corpuscular HGB Conc 33.8 g/dL (31.8-35.4); Mean Corpuscular Hemoglobin 30.6 pg (27.0-31.2); Mean Corpuscular Volume 90.7 fl (80-94); Mean Platelet Volume 7.6 fl (7.4-10.4); Monocytes # 0.6 K/mm3 (0.1-1.0); Monocytes % 6.6 % (1.7-9.3); Neutrophils # 6.1 K/mm3 (1.8-7.8); Neutrophils % 69.7 % (37.0-80.0); Platelet Count 304 K/mm3 (142-424); Red Blood Count 5.23 M/mm3 (4.60-6.20); Red Cell Distribution Width 12.9 % (11.5-17.5); White Blood Count 8.8 K/mm3 (4.8-10.8)
--- NOTE | 2024-07-17 08:18 | PC.NURSE ---
Pt ambulatory to RAD
--- NOTE | 2024-07-17 08:19 | CT_ITS ---
PROCEDURE INFORMATION: Exam: CT Thoracic Spine Without Contrast Exam date and time: 07/17/2024 8:26 AM Age: 34 years old Clinical indication: Pain in thoracic spine; Additional info: Back pain TECHNIQUE: Imaging protocol: Computed tomography of the thoracic spine without contrast. Radiation optimization: All CT scans at this facility use at least one of these dose optimization techniques: automated exposure control; mA and/or kV adjustment per patient size (includes targeted exams where dose is matched to clinical indication); or iterative reconstruction. COMPARISON: CT ABDOMEN PELVIS WO CON 07/17/2024 8:19 AM FINDINGS: Bones/joints: No acute fracture. Normal alignment. There is loss of disc space height throughout the midthoracic spine with small anterior osteophytes. At T6-T7, there is a partially calcified leftward protrusion (series 3, image 74). No severe spinal canal stenosis. No significant neural foraminal narrowing. Soft tissues: Unremarkable. Lymph nodes: There are calcified right hilar lymph nodes with the largest measuring up to 2.6 cm. Lungs: There is a 9 mm granuloma in the right lower lobe. IMPRESSION: 1. There are degenerative changes throughout. 2. There is no acute thoracic spine fracture. 3. At T6-T7, there is a chronic appearing leftward protrusion. If symptoms persist, a follow-up MRI may be indicated. 4. Sequela of granulomatous disease with a right lung granuloma and right hilar calcified lymph nodes present. The chest is not fully included on this exam.
[2024-07-17 08:21] LABS: Albumin Level 4.5 g/dl (3.5-5.0); Chloride 108 mmol/L (98-107); Sodium 136 mmol/L (136-145)
[2024-07-17 08:22] LABS: Potassium 4.6 mmoL/L (3.5-5.1)
[2024-07-17 08:24] LABS: Alanine Aminotransferase 41 U/L (12-78); Alkaline Phosphatase 52 U/L (38-126); Anion Gap 11.6 mEq/L (5-15); Aspartate Amino Transferase 42 U/L (17-59); Blood Urea Nitrogen 17 mg/dl (9-20); Carbon Dioxide 21 mmol/L (22.0-30.0); Creatinine Clearance Estimated 202 mL/min (50-200); Estimated Glomerular Filt Rate 98 ml/min (>60); GFR (African American) 118 ML/MIN (>60); Lipase 103 U/L (23-300)
[2024-07-17 08:25] LABS: Albumin/Globulin Ratio 1.4 (1.1-1.8); Calcium 9.1 mg/dl (8.4-10.2); Globulin 3.2 g/dL (1.3-3.2); Glucose 107 mg/dl (74-100); Total Protein,Serum 7.7 g/dl (6.3-8.2)
--- NOTE | 2024-07-17 08:35 | PC.NURSE ---
Pt returned to room from RAD
[2024-07-17 08:58] LABS: Bacteria,Urine Trace /lpf; Squamous Epithelial Cell,Urine Occasional #/hpf (0-5); WBC,Urine Occasional #/hpf (0-3)
[2024-07-17] MEDS: TAMSULOSIN 0.4MG CAPSULE 0.4 MG PO (09:17)
[2024-07-17] MEDS: OXYCODONE 5MG IMMEDIATE RELEASE TABLET 5 MG PO (09:18)
== END 2024-07-17 10:11 | disposition home or self-care (01) ==
PROVIDERS: Emergency Provider Emergency Medicine; PCP Family Medicine
DX: N13.0 Hydronephrosis with ureteropelvic junction obstruction (principal); N13.4 Hydroureter; R11.2 Nausea with vomiting, unspecified; M51.37 Other intervertebral disc degeneration, lumbosacral region; M51.24 Other intervertebral disc displacement, thoracic region; J84.10 Pulmonary fibrosis, unspecified
CPT/HCPCS: 72128; 72131; 74176; 80053; 81001; 83690; 85025; 96361; 96374; 96375; 99285; J0131; J1885; J2270; J2405; J7120; Q0162